=== PATIENT | male | born 1990 | race Caucasian/White ===

== ENCOUNTER 2023-06-10 21:59 | Emergency (ER) | payer MEDICAID ==
[~2023-06-10] VITALS: Ht 165.1 cm; Wt 110.2 kg
[2023-06-10 22:25] VITALS: BP 153/85; PULSE 117; RESP 15; TEMP 98.8; O2SAT 97
[2023-06-11 06:23] VITALS: BP 169/80; PULSE 100; RESP 18; TEMP 98.8; O2SAT 97
== END 2023-06-11 06:23 | disposition home or self-care (01) ==
LOC: MED 21:59
DX: F15.10 Other stimulant abuse, uncomplicated (principal); Z79.899 Other long term (current) drug therapy
CPT/HCPCS: 99283